=== PATIENT | male | born 1950 | race Caucasian/White ===

== ENCOUNTER → 2017-06-19 | Outpatient (CLI) | payer OTHER ==
[~2017-06-19] MED LIST: ACET-1693 PO; AMT100 PO; DIPH-437 PO; NRN300 PO
[2017-06-19 12:24] LABS: BASO % 0.5 %; BASO ABS # 0.05 K/uL (0-0.2); EOS % 1.2 %; EOS ABS # 0.12 K/uL (0-0.5); HEMATOCRIT 54.4 % (42-52); HEMOGLOBIN 18.7 g/dL (14.0-18.0); IG# 0.03 K/uL (0.00-0.02); LYMPH % 20.8 %; LYMPH ABS # 2.14 K/uL (1.2-3.4); MEAN CELL VOLUME 96.8 fL (80-100); MEAN CORPUSCULAR HEMOGLOBIN 33.3 pg (25-34); MEAN CORPUSCULAR HGB CONC 34.4 g/dl (32-36); MEAN PLATELET VOLUME 9.6 fL (7.4-10.4); MONO % 8.9 %; MONO ABS # 0.92 K/uL (0.11-0.59); NEUT % 68.3 %; NEUT ABS # 7.05 K/uL (1.4-6.5); PLATELET COUNT 324 K/uL (130-400); RED CELL DISTRIBUTION WIDTH CV 14.3 % (11.5-14.5); RED CELL DISTRIBUTION WIDTH SD 50.3 fL (36.4-46.3); WHITE BLOOD COUNT 10.31 K/uL (4.8-10.8)
[2017-06-19 16:07] LABS: ALBUMIN 3.8 gm/dl (3.4-5.0); ALT/SGPT 46 U/L (12-78); AST/SGOT 28 U/L (15-37); BLOOD UREA NITROGEN 8 mg/dl (7-18); CALCIUM 9.4 mg/dl (8.5-10.1); CARBON DIOXIDE 30 mmol/L (21-32); CREATININE 1.14 mg/dl (0.60-1.40); GLUCOSE 101 mg/dl (70-99); POTASSIUM 5.4 mmol/L (3.5-5.1); SODIUM 135 mmol/L (136-145); TOTAL PROTEIN 7.7 gm/dl (6.4-8.2)
[2017-06-19 16:09] LABS: ALKALINE PHOSPHATASE 112 U/L (45-117); CHOLESTEROL 196 mg/dl (0-200); LDL CHOLESTEROL CALCULATED 100 mg/dl
== END | disposition home or self-care (01) ==
LOC: C.LABBFT 10:37
PROVIDERS: ATTEND Physician Assistant Medical
DX: E78.5 Hyperlipidemia, unspecified (principal)